=== PATIENT | female | born 1990 | race Caucasian/White ===

== ENCOUNTER 2020-12-09 09:26 | Emergency (ER) | payer MEDICAID, OTHER ==
[~2020-12-09] VITALS: Ht 170.2 cm; Wt 63.5 kg
--- NOTE | 2020-12-09 09:42 | NUR ---
unable to heplock the pt, pt says that "used to use needles for drugs", NOTIFIED.
[2020-12-09] MEDS ORDERED: ONDANSETRON ODT 4 MG TAB.RAPDIS SL ONE (09:45)
[2020-12-09] MEDS ORDERED: ONDANSETRON 4 MG/2 ML VIAL IV ONE (09:45)
[2020-12-09] MEDS ORDERED: IV NORMAL SALINE 100 ML BAG IV ONE (09:45)
[2020-12-09] MEDS ORDERED: ONDANSETRON ODT 4 MG TAB.RAPDIS ONE (09:50)
--- NOTE | 2020-12-09 10:00 | NUR ---
Covid swab sent to lab
[2020-12-09 10:09] LABS: HEMATOCRIT 37.6 % (31.2-41.9); MEAN CORPUSCULAR HEMOGLOBIN 27.6 uug (24.7-32.8); MEAN CORPUSCULAR VOLUME 80.1 fL (75.5-95.3); PLATELET COUNT (AUTO) 249 K/uL (179-408)
[2020-12-09 10:17] LABS: NEUTROPHILS % (MANUAL) 0 % (42-75)
[2020-12-09 10:23] LABS: CREATININE 0.8 mg/dL (0.6-1.3); POTASSIUM 4.1 mmol/L (3.5-5.1)
[2020-12-09 10:29] LABS: BILIRUBIN,TOTAL 0.3 mg/dL (0.2-1.0)
--- NOTE | 2020-12-09 10:48 | NUR ---
Patient aware of lab results. DC and follow up instructions given and explained to patient who states she understands all instructions including quarantine and when to call MD
== END 2020-12-09 10:50 | disposition home or self-care (01) ==
LOC: ER 09:26
DX: U07.1 COVID-19 (principal); J45.909 Unspecified asthma, uncomplicated; R11.10 Vomiting, unspecified
CPT/HCPCS: 36415; 70030-TC; 71045; 83690; 85025; A4663; J7030; Q0162